=== PATIENT | female | born 1990 | race Caucasian/White ===

== ENCOUNTER 2017-12-15 20:57 | Emergency (ER) | payer OTHER ==
[2017-12-15] MEDS ORDERED: Sodium Chloride 0.9% 1,000 ML IV ONE (21:35)
[2017-12-15 21:56] LABS: BASO # 0.1 K/uL (0.0-0.2); BASO % 0.8 % (0.0-2.0); EOS # 0.2 K/uL (0.0-0.7); EOS % 1.9 % (0.0-4.0); HEMOGLOBIN 12.6 g/dL (11.0-16.0); LYMPH # 2.2 K/uL (1.0-4.3); MEAN CELL VOLUME 74.8 fL (81.0-99.0); MEAN CORPUSCULAR HEMOGLOBIN 25.3 pg (27.0-31.0); MEAN CORPUSCULAR HGB CONC 33.9 g/dL (33.0-37.0); MEAN PLATELET VOLUME 10.8 fL (7.2-11.7); MONO # 0.5 K/uL (0.0-0.8); MONO % 6.9 % (0.0-10.0); NEUT # 4.8 K/uL (1.8-7.0); NEUT % 62.4 % (50.0-75.0); NRBC % 0.1 % (0.0-2.0); RBC 4.97 Mil/uL (3.80-5.20); RED CELL DISTRIBUTION WIDTH 15.2 % (11.5-14.5); WHITE BLOOD COUNT 7.7 K/uL (4.8-10.8)
[2017-12-15 22:00] LABS: HCG,QUALITATIVE URINE NEGATIVE (NEGATIVE)
[2017-12-15 22:07] LABS: SQUAMOUS EPITHIAL < 1 /hpf (0-5); URINE BACTERIA FEW (<OCC); URINE BILIRUBIN NEGATIVE (NEGATIVE); URINE BLOOD 3+ (NEGATIVE); URINE CLARITY Clear (Clear); URINE COLOR Red (YELLOW); URINE GLUCOSE (UA) NORMAL (Normal); URINE LEUKOCYTE ESTERASE 2+ Leu/uL (Negative); URINE PROTEIN 1+ mg/dL (NEGATIVE); URINE UROBILINOGEN NORMAL mg/dL (0.2-1.0)
[2017-12-15 22:16] LABS: ALB/GLOB RATIO 1.1 (1.0-2.1); ALBUMIN 3.7 g/dL (3.5-5.0); ALT/SGPT 18 U/L (9-52); AST/SGOT 17 U/L (14-36); BLOOD UREA NITROGEN 8 mg/dL (7-17); CALCIUM 8.9 mg/dl (8.6-10.4); GFR NON-AFRICAN AMERICAN > 60
--- NOTE | 2017-12-15 22:37 | C.PDOC ---
History Of Present Illness 27 year old female presents to the emergency department complaining of menstrual-like bleeding. Patient claims positive test yesterday at the doctors office but was vaguely positive. Denies other medical problems, significant weight loss, nausea, or vomiting. Time Seen by Provider: 12/15/17 21:26 Chief Complaint (Nursing): Female Genitourinary History Per: Patient History/Exam Limitations: no limitations Onset/Duration Of Symptoms: Days Current Symptoms Are (Timing): Still Present Past Medical History Reviewed: Historical Data, Nursing Documentation, Vital Signs Vital Signs: Last Vital Signs Temp 99.7 F H 12/15/17 21:25 Pulse 96 H 12/15/17 21:25 Resp 18 12/15/17 21:25 BP 129/86 12/15/17 21:25 Pulse Ox 97 12/15/17 21:25 Family History: States: No Known Family Hx - Social History Hx Alcohol Use: No Hx Substance Use: No - Immunization History Hx Tetanus Toxoid Vaccination: No Hx Influenza Vaccination: No Hx Pneumococcal Vaccination: No Review Of Systems Except As Marked, All Systems Reviewed And Found Negative. Constitutional: Negative for: Fever, Chills, Weight loss Cardiovascular: Negative for: Chest Pain Respiratory: Negative for: Shortness of Breath Gastrointestinal: Negative for: Nausea, Vomiting, Abdominal Pain Genitourinary: Positive for: Vaginal Bleeding Neurological: Negative for: Weakness, Numbness Physical Exam - Physical Exam Appears: Non-toxic, No Acute Distress, Other (obese) Skin: Warm, Dry Head: Atraumatic, Normacephalic Eye(s): bilateral: Normal Inspection Oral Mucosa: Moist Cardiovascular: Rhythm Regular, No Murmur Respiratory: Normal Breath Sounds, No Rales, No Rhonchi, No Wheezing Gastrointestinal/Abdominal: Soft, No Tenderness, No Guarding, No Rebound Neurological/Psych: Oriented x3, Normal Speech ED Course And Treatment - Laboratory Results Result Diagrams: 12/15/17 21:51 12/15/17 21:51 Lab Interpretation: Normal (QUANT hct 22,) Urine POC: Negative (NEG URINE PREG) O2 Sat by Pulse Oximetry: 97 (RA) Pulse Ox Interpretation: Normal Reevaluation Time: 22:37 Reassessment Condition: Unchanged Medical Decision Making Medical Decision Making: Impression: Vaginal Bleeding Plan: --Labs --IV Fluids --US Transvaginal not Menstrual period Disposition Doctor Will See Patient In The: Office Counseled Patient/Family Regarding: Studies Performed, Diagnosis - Disposition Referrals: Merissa Montana MD [Medical Doctor] - Disposition: HOME/ ROUTINE Disposition Time: 22:37 Condition: GOOD Additional Instructions: your test (both by urine and serum/blood) is NEGATIVE You were NOT . You may attempt normal in the next month Instructions: Menstruation Forms: [employer] (Greenlandic) - Clinical Impression Clinical Impression: Normal menstrual period - Scribe Statement The provider has reviewed the documentation as recorded by the Jay Bethea Provider Attestation: All medical record entries made by the Jay were at my direction and personally dictated by me. I have reviewed the chart and agree that the record accurately reflects my personal performance of the history, physical exam, medical decision making, and the department course for this patient. I have also personally directed, reviewed, and agree with the discharge instructions and disposition.
[2017-12-15 22:51] VITALS: BP 114/75; PULSE 84; RESP 16; TEMP 98.4
[2017-12-15 23:56] VITALS: O2SAT 97
== END 2017-12-15 22:49 | disposition home or self-care (01) ==
LOC: C.ER 20:57
DX: N93.9 Abnormal uterine and vaginal bleeding, unspecified (principal)